=== PATIENT | female | born 1990 | race Caucasian/White ===

== ENCOUNTER 2020-09-24 02:27 | Emergency (ER) | payer BC ==
[~2020-09-24] VITALS: Ht 167.6 cm; Wt 97.5 kg
[~2020-09-24 02:27] MED LIST: MACROBID 100 M100 M1 PO; PRENATAL
[2020-09-24] MEDS ORDERED: ZUPLENZ4 MG PO (02:40)
[2020-09-24] MEDS ORDERED: OXYCONTIN10 M1 PO (02:40)
[2020-09-24] MEDS ORDERED: ONDANSETRON ODT4 MG PO (02:41)
[2020-09-24 03:06] LABS: ABSOLUTE BASOPHILS 0.1 thou/uL (0.0-0.2); ABSOLUTE EOSINOPHILS 0.3 thou/uL (0.0-0.7); ABSOLUTE LYMPHOCYTES 2.3 thou/uL (0.8-5.3); ABSOLUTE MONOCYTES 0.4 thou/uL (0.0-1.2); ABSOLUTE NEUTROPHILS 11.2 thou/uL (1.6-8.1); BASOPHILS 0.4 %; EOSINOPHILS 1.8 %; HEMOGLOBIN 12.7 gm/dL (12.0-15.0); LYMPHOCYTES 16.4 %; MCH 30.3 pg (26.0-34.0); MCHC 33.5 g/dL (28.0-37.0); MCV 90.5 fL (80.0-100.0); MONOCYTES 2.9 %; MPV 8.1 fl. (7.2-11.1); NUCLEATED RBCS 0 /100WBC; PLATELET COUNT* 325 thou/uL (150-400); POLYS 78.5 %; RDW-CV 12.7 % (10.5-14.5); WBC 14.3 thou/uL (4.0-11.0)
[2020-09-24 03:12] LABS: CALCIUM 9.6 mg/dL (8.5-10.1); POTASSIUM 3.7 mmol/L (3.5-5.1)
[2020-09-24 03:17] LABS: ALBUMIN 3.5 g/dL (3.4-5.0); TOTAL BILIRUBIN 0.3 mg/dL (<0.1-1.0); TOTAL PROTEIN 7.4 g/dL (6.4-8.2)
[2020-09-24 05:15] VITALS: BP 121/82
--- NOTE | 2020-09-24 09:08 | EKG ---
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 09/24/2007 9 Alexx Fuentes MD, FAC /EPI
== END 2020-09-24 05:15 | disposition short-term general hospital (02) ==
LOC: M.ERS 02:27
PROVIDERS: Personal Emergency Response Attendant
DX: S06.0X9A Concussion with loss of consciousness of unspecified duration, initial encounter (principal); R42 Dizziness and giddiness; R11.2 Nausea with vomiting, unspecified; Z88.4 Allergy status to anesthetic agent; Z79.899 Other long term (current) drug therapy; V48.5XXA Car driver injured in noncollision transport accident in traffic accident, initial encounter; Y93.I9 Activity, other involving external motion; Y92.488 Other paved roadways as the place of occurrence of the external cause; Y99.8 Other external cause status